=== PATIENT | male | born 1960 | race Hispanic/Latino ===

== ENCOUNTER 2018-01-23 10:31 | Emergency (ER) | payer SELFPAY ==
[2018-01-23] MEDS ORDERED: NA CHLORIDE 0.9% 1,000 ML ONE (11:06)
[2018-01-23 11:09] LABS: Absolute Lymphocytes (CBC) 1.1 K/uL (0.7-4.9); Absolute Monocytes 1.4 K/uL (0.1-1.3); Absolute Neutrophil 14.1 K/uL (1.8-8.0); Basophils % 0.1 % (0-1.3); Hematocrit 44.1 % (39.6-49.0); Lymphocytes % 6.8 % (15.3-44.8); MCH 27.7 pg (27.0-35.0); MCV 82.8 fL (80-100); MPV 9.4 fL (7.6-11.3); Monocytes % 8.6 % (3.3-12.3); RBC Red Blood Cell Count 5.33 M/uL (4.33-5.43)
[2018-01-23 11:32] LABS: ALT/SGPT 72 U/L (12-78); AST/SGOT 61 U/L (15-37); Albumin 3.4 g/dL (3.4-5.0); Alkaline Phosphatase 169 U/L (45-117); BUN Blood Urea Nitrogen 10 mg/dL (7-18); Bicarbonate 22 mmol/L (21-32); Bilirubin Direct 1.1 mg/dL (0-0.2); Bilirubin Total 3.1 mg/dL (0.2-1.0); Glucose Level 311 mg/dL (74-106); Lipase 115 U/L (73-393); Potassium 3.7 mmol/L (3.5-5.1); Protein, Total 7.3 g/dL (6.4-8.2); Sodium Level 137 mmol/L (136-145); Troponin (Emerg Dept Use Only) < 0.02 ng/mL (0.0-0.045)
--- NOTE | 2018-01-23 11:33 | RAD REPORT ---
EXAM DESCRIPTION: US - Abdomen Exam Limited - 01/23/2018 11:27 am CLINICAL HISTORY: Abdominal pain. COMPARISON: None. FINDINGS: The gallbladder wall is not thickened. A gallstone is not seen. The biliary tree is normal caliber. IMPRESSION: Unremarkable gallbladder ultrasound.
--- NOTE | 2018-01-23 11:45 | RAD REPORT ---
EXAM DESCRIPTION: RAD - Chest Single View - 01/23/2018 11:34 am CLINICAL HISTORY: RUQ pain Chest pain. COMPARISON: CHEST SINGLE VIEW dated 06/21/2012 FINDINGS: Portable technique limits examination quality. The lungs are grossly clear. The heart is normal in size. No displaced fractures. IMPRESSION: No acute intrathoracic process suspected.
[2018-01-23] MEDS ORDERED: LIDOCAINE VISCOUS 2% SOLN 15 ML UDC ONE (11:55)
[2018-01-23] MEDS ORDERED: MAGNE/ALUM HYDROXD 30 ML UCUP ONE (11:55)
[2018-01-23] MEDS ORDERED: IBUPROFEN 400 MG TAB ONE (12:02)
--- NOTE | 2018-01-23 12:33 | EKG ---
Test Date: 2018-01-23 Test Time: 10:58:49 Tow Truck Dispatcher: KAREN MEASUREMENT RESULTS: Intervals: Rate: 108 RI: 144 QRSD: 92 QT: 312 QTc: 418 [place]: P: 29 RI: 144 QRS: 62 T: 11 INTERPRETIVE STATEMENTS: Sinus tachycardia Otherwise normal ECG Compared to ECG 06/21/2012 17:23:28 No significant changes Electronically Signed On 01-23-18 12:32:44 CDT by Anthony Dennis
[2018-01-23] MEDS ORDERED: ACETAMINOPHEN 500 MG TAB ONE (13:30)
--- NOTE | 2018-01-23 14:20 | RAD REPORT ---
EXAM DESCRIPTION: CT - Abdomen Pelvis W Contrast - 01/23/2018 1:56 pm CLINICAL HISTORY: Abdominal pain with nausea. COMPARISON: none. TECHNIQUE: Computed axial tomography of the abdomen pelvis was obtained. 100 cc Isovue-300 was admin istered intravenously. Oral contrast was given All CT scans are performed using dose optimization technique as appropriate and may include automated exposure control or mA/KV adjustment according to patient size. FINDINGS: A cirrhotic liver is present. For the portal vein is patent. A lesion is not seen. The spleen measures 18 centimeters. The pancreas, adrenals and kidneys appear unremarkable. The appendix is normal. There is no evidence of diverticulitis. No ascites is seen. There is no evidence of diverticulitis. IMPRESSION: Cirrhosis with moderate splenomegaly
[2018-01-23 14:30] LABS: Urine Blood TRACE (NEG); Urine Glucose 3+ (NEG); Urine Protein NEGATIVE (NEG); Urine Specific Gravity 1.015 (1.005-1.030); Urine pH 5.5 (5.0-7.0)
--- NOTE | 2018-01-23 14:43 | ER ---
Nurse's Notes [facility] Name: Ishmael Fletcher Age: 57 yrs Sex: Male : 1960 Arrival Date: 01/23/2018 Time: 10:39 Bed 8 Private MD: Diagnosis: Unspecified abdominal pain;Fever, unspecified Presentation: 01/23 10:40 Presenting complaint: Patient states: abdominal pain with nausea started yesterday. Transition of care: patient was not received from another setting of care. Onset of symptoms was January 22, 2018. Risk Assessment: Do you want to hurt yourself or someone else? Patient reports no desire to harm self or others. Initial Sepsis Screen: Does the patient meet any 2 criteria? HR > 90 bpm. Does the patient have a suspected source of infection? No. Patient's initial sepsis screen is negative. Care prior to arrival: None. 10:40 Method Of Arrival: Ambulatory 10:40 Acuity: MEME 3 10:42 Note serbian speaking only. Triage Assessment: 10:41 General: Appears in no apparent distress. uncomfortable, Behavior is calm, cooperative, ch appropriate for age. Pain: Complains of pain in abdomen. GI: Reports lower abdominal pain, upper abdominal pain, nausea. Historical: - Allergies: 10:41 No Known Allergies; - Home Meds: 10:41 blood pressure and diabetes pills [Active]; - PMHx: 10:41 Hypertension; Diabetes - NIDDM; - PSHx: 10:41 None; - Immunization history:: Adult Immunizations up to date, Flu vaccine is not up to date. - Social history:: Smoking status: Patient/guardian denies using tobacco, Patient uses alcohol, occasionally. - Ebola Screening: : Patient negative for fever greater than or equal to 101.5 degrees Fahrenheit, and additional compatible Ebola Virus Disease symptoms Patient denies exposure to infectious person Patient denies travel to an Ebola-affected area in the 21 days before illness onset No symptoms or risks identified at this time. - Family history:: not pertinent. - Hospitalizations: : No recent hospitalization is reported. Screenin:42 Abuse screen: Denies threats or abuse. Nutritional screening: No deficits noted. aa5 Tuberculosis screening: No symptoms or risk factors identified. Fall Risk None identified. Assessment: 10:42 General: Appears comfortable, Behavior is calm, cooperative. Pain: Complains of pain in aa5 epigastric area, right upper quadrant and left upper quadrant Pain does not radiate. Pain currently is 3 out of 10 on a pain scale. Quality of pain is described as crampy, Pain began last night Is continuous. Neuro: Level of Consciousness is awake, alert, obeys commands, Oriented to person, place, time, situation. Cardiovascular: Heart tones S1 S2 present Rhythm is regular. Respiratory: Airway is patent Respiratory effort is even, unlabored, Respiratory pattern is regular, symmetrical. GI: Abdomen is round non-distended, Bowel sounds present X 4 quads. Abd is soft and non tender X 4 quads. Reports nausea, Patient currently denies diarrhea, vomiting. : No signs and/or symptoms were reported regarding the genitourinary system. EENT: No signs and/or symptoms were reported regarding the EENT system. Derm: Skin is pink, warm \T\ dry. Musculoskeletal: Range of motion: intact in all extremities. 11:06 Reassessment: Us at bedside . aa5 11:45 Reassessment: Patient and/or family updated on plan of care and expected duration. Pain aa5 level reassessed. Patient is alert, oriented x 3, equal unlabored respirations, skin warm/dry/pink. Patient denies pain at this time. 11:58 Reassessment: Pt completed CT oral contrast, CT notified . aa5 13:26 Reassessment: Patient appears in no apparent distress at this time. Patient and/or sv family updated on plan of care and expected duration. Pain level reassessed. Patient is alert, oriented x 3, equal unlabored respirations, skin warm/dry/pink. Vital Signs: 10:41 BP 155 / 81; Pulse 124; Resp 22; Temp 99.5(O); Pulse Ox 99% on R/A; Weight 94.35 kg; aa5 Height 5 ft. 9 in. (175.26 cm); Pain 3/10; 11:06 BP 133 / 79; Pulse 108; Resp 16 S; Pulse Ox 96% on R/A; Pain 2/10; aa5 11:51 Pulse 95; Resp 20 S; Temp 101.3(O); Pulse Ox 97% on R/A; Pain 0/10; aa5 13:00 BP 105 / 60; Pulse 102; Resp 20; Pulse Ox 98% ; sv 13:13 Temp 102.4(T); jb1 15:07 BP 110 / 74; Pulse 97; Resp 16; Temp 99.8(O); Pulse Ox 98% on R/A; la1 10:41 Body Mass Index 30.72 (94.35 kg, 175.26 cm) aa5 ED Course: 10:39 Patient arrived in ED. as 10:40 Yanna Kohler, RN is Primary Nurse. aa5 10:40 Triage completed. ch 10:41 Arm band placed on left wrist. Patient placed in an exam room, on a stretcher. ch 10:42 Grayson Juares MD is Attending Physician. rn 10:42 Patient has correct armband on for positive identification. Placed in gown. Bed in low aa5 position. Call light in reach. Side rails up X2. 11:00 Initial lab(s) drawn, by me, sent to lab. Inserted saline lock: 20 gauge in right aa5 antecubital area, using aseptic technique. Blood collected. 11:03 US Abdomen Limited In Process Unspecified. EDMS 11:10 EKG done, by residential air sealing technician. reviewed by Grayson Juares MD. at1 11:23 Ultrasound completed. Patient tolerated well. Note: done portable/bedside. dr juares not lc3 available for prelim. 11:33 X-ray completed. Portable x-ray completed in exam room. Patient tolerated procedure jb2 well. 11:35 XRAY Chest (1 view) In Process Unspecified. EDMS 12:00 Flu and/or RSV swab sent to lab. aa5 13:13 Urine collected: clean catch specimen, cloudy, bartolo colored. jb1 13:56 CT Abd/Pelvis - W/Contrast In Process Unspecified. EDMS 15:07 No provider procedures requiring assistance completed. IV discontinued, intact, la1 bleeding controlled, No redness/swelling at site. Pressure dressing applied. Administered Medications: 11:01 Drug: NS 0.9% 1000 ml Route: IV; Rate: 1000 ml; Site: right antecubital; sv 11:53 Follow up: IV Status: Completed infusion; IV Intake: 1000ml aa5 12:00 Follow up: IV Status: Completed infusion la1 11:52 Drug: GI Cocktail without - (Maalox Suspension 30 ml, Lidocaine Liquid 2 % 15 aa5 ml) Route: PO; 15:06 Follow up: Response: No adverse reaction la1 12:00 Drug: Motrin 800 mg Route: PO; aa5 15:06 Follow up: Response: No adverse reaction la1 13:26 Drug: Tylenol 1000 mg Route: PO; sv 15:05 Follow up: Response: No adverse reaction; Temperature is decreased la1 Intake: 11:53 IV: 1000ml; Total: 1000ml. aa5 Outcome: 14:41 Discharge ordered by . rn 15:08 Discharged to home ambulatory. la1 15:08 Condition: stable 15:08 Discharge instructions given to patient, Instructed on discharge instructions, follow up and referral plans. medication usage, Demonstrated understanding of instructions, follow-up care, medications, Prescriptions given X 3. 15:08 Patient left the ED. la1 Signatures: Dispatcher [employer] EDMS Delta Fletcher1 Meron Lancaster RN RN ch Verde, Stephanie, RN RN sv Buechter, Jesse jb2 Stephanie Cooper Roman, MD MD rn Calderon, Audri RN RN aa5 Carmelita Dunn, ginner helper EKG Tat1 Patel Felder RN RN la1 Ricardo Babcock Corrections: (The following items were deleted from the chart) 11:51 10:41 BP 155 / 81; Pulse 124bpm; Resp 22bpm; Pulse Ox 99% RA; 94.35 kg; Height 5 ft. 9 aa5 in.; BMI: 30.7; Pain 3/10;
--- NOTE | 2018-01-23 14:43 | EDPHYS ---
Physician Documentation [facility] Name: Ishmael Fletcher Age: 57 yrs Sex: Male : 1960 Arrival Date: 01/23/2018 Time: 10:39 Bed 8 Private MD: ED Physician Grayson Juares HPI: 01/23 10:50 This 57 yrs old Male presents to ER via Ambulatory with complaints of rn Abdominal Pain. 10:50 The patient presents with abdominal pain in the epigastric area, in the right upper rn quadrant. Onset: The symptoms/episode began/occurred last night. The symptoms do not radiate. Associated signs and symptoms: none. Pertinent negatives: nausea and vomiting, anorexia, chest pain, diarrhea, dysuria, fever, palpitations, shortness of breath. The symptoms are described as achy. Modifying factors: The symptoms are alleviated by nothing, the symptoms are aggravated by touching the area. Severity of pain: At its worst the pain was moderate in the emergency department the pain has improved. The patient has not experienced similar symptoms in the past. The patient has not recently seen a physician. Historical: - Allergies: 10:41 No Known Allergies; ch - Home Meds: 10:41 blood pressure and diabetes pills [Active]; - PMHx: 10:41 Hypertension; Diabetes - NIDDM; - PSHx: 10:41 None; - Immunization history:: Adult Immunizations up to date, Flu vaccine is not up to date. - Social history:: Smoking status: Patient/guardian denies using tobacco, Patient uses alcohol, occasionally. - Ebola Screening: : Patient negative for fever greater than or equal to 101.5 degrees Fahrenheit, and additional compatible Ebola Virus Disease symptoms Patient denies exposure to infectious person Patient denies travel to an Ebola-affected area in the 21 days before illness onset No symptoms or risks identified at this time. - Family history:: not pertinent. - Hospitalizations: : No recent hospitalization is reported. ROS: 10:50 Constitutional: Negative for fever, chills, and weight loss, Eyes: Negative for injury, rn pain, redness, and discharge, Cardiovascular: Negative for chest pain, palpitations, and edema, Respiratory: Negative for shortness of breath, cough, wheezing, and pleuritic chest pain, Abdomen/GI: Negative for vomiting, diarrhea, and constipation, Back: Negative for injury and pain, MS/Extremity: Negative for injury and deformity, Skin: Negative for injury, rash, and discoloration, Neuro: Negative for headache, weakness, numbness, tingling, and seizure. Exam: 10:50 Constitutional: This is a well developed, well nourished patient who is awake, alert, rn and in no acute distress. Head/Face: Normocephalic, atraumatic. Eyes: Pupils equal round and reactive to light, extra-ocular motions intact. Cardiovascular: regular, tachycardic, no murmur Respiratory: Lungs have equal breath sounds bilaterally, clear to auscultation. No increased work of breathing, no retractions or nasal flaring. Abdomen/GI: soft, mils epigastric and RUQ tenderness, neg allen Skin: Warm, dry with normal turgor. Normal color with no rashes, no lesions, and no evidence of cellulitis. MS/ Extremity: Pulses equal, no cyanosis. Neurovascular intact. Full, normal range of motion. Equal circumference. Neuro: Awake and alert, GCS 15, oriented to person, place, time, and situation. Cranial nerves II-XII grossly intact. Motor strength 5/5 in all extremities. Sensory grossly intact. 10:59 ECG was reviewed by the Attending Physician. rn Vital Signs: 10:41 BP 155 / 81; Pulse 124; Resp 22; Temp 99.5(O); Pulse Ox 99% on R/A; Weight 94.35 kg; aa5 Height 5 ft. 9 in. (175.26 cm); Pain 3/10; 11:06 BP 133 / 79; Pulse 108; Resp 16 S; Pulse Ox 96% on R/A; Pain 2/10; aa5 11:51 Pulse 95; Resp 20 S; Temp 101.3(O); Pulse Ox 97% on R/A; Pain 0/10; aa5 13:00 BP 105 / 60; Pulse 102; Resp 20; Pulse Ox 98% ; sv 13:13 Temp 102.4(T); jb1 15:07 BP 110 / 74; Pulse 97; Resp 16; Temp 99.8(O); Pulse Ox 98% on R/A; la1 10:41 Body Mass Index 30.72 (94.35 kg, 175.26 cm) aa5 MDM: 10:42 Patient medically screened. rn 14:39 Differential diagnosis: appendicitis, cholecystitis, diverticulitis, gastritis, rn Hepatitis, pancreatitis, Peptic Ulcer Disease. Data reviewed: vital signs, nurses notes, lab test result(s), radiologic studies, CT scan, ultrasound, and as a result, I will discharge patient. Counseling: I had a detailed discussion with the patient and/or guardian regarding: the historical points, exam findings, and any diagnostic results supporting the discharge/admit diagnosis, lab results, radiology results, the need for outpatient follow up, to return to the emergency department if symptoms worsen or persist or if there are any questions or concerns that arise at home. Response to treatment: the patient's symptoms have resolved after treatment, the patient's condition has returned to base line, the patient is now symptom free, and as a result, I will discharge patient. Special discussion: Based on the patient's Hx, exam, and Dx evaluation, there is no indication for emergent surgery or inpatient Tx. It is understood by the patient/guardian that if the Sx's persist or worsen they need to return immediately for re-evaluation. I discussed with the patient/guardian in detail that at this point there is no indication for admission to the hospital. It is understood, however, that if the symptoms persist or worsen the patient needs to return immediately for re-evaluation. ED course: Neg ct except for cirrhosis of liver, patient reports drinks often, no current pain, no nausea. Possible viral syndrome vs early colitis. Will dc home with return precautions. . 01/23 10:47 Order name: Basic Metabolic Panel; Complete Time: 11:41 rn 01/23 10:47 Order name: CBC with Diff; Complete Time: 11:41 rn 01/23 10:47 Order name: Hepatic Function; Complete Time: 11:41 rn 01/23 10:47 Order name: Lipase; Complete Time: 11:41 rn 01/23 10:47 Order name: Troponin (emerg Dept Use Only); Complete Time: 11:41 rn 01/23 11:53 Order name: Flu; Complete Time: 13:22 aa5 01/23 10:47 Order name: US Abdomen Limited; Complete Time: 11:41 rn 01/23 10:47 Order name: XRAY Chest (1 view); Complete Time: 11:54 rn 01/23 11:42 Order name: CT Abd/Pelvis - W/Contrast; Complete Time: 14:21 rn 01/23 13:58 Order name: Urine Dipstick--Ancillary (enter results); Complete Time: 14:41 bd 01/23 10:47 Order name: IV Saline Lock; Complete Time: 11:01 rn 01/23 10:47 Order name: Labs collected and sent; Complete Time: 11:01 rn 01/23 10:47 Order name: EKG; Complete Time: 10:48 rn 01/23 10:47 Order name: EKG - Nurse/Tech; Complete Time: 11:03 rn 01/23 12:04 Order name: Urine Dipstick-Ancillary (obtain specimen); Complete Time: 13:13 aa5 EC:59 Rate is 108 beats/min. Rhythm is regular. QRS [place] is Normal. ND interval is normal. rn QRS interval is normal. QT interval is normal. No Q waves. T waves are Normal. No ST changes noted. Clinical impression: Sinus tachycardia. Interpreted by me. Administered Medications: 11:01 Drug: NS 0.9% 1000 ml Route: IV; Rate: 1000 ml; Site: right antecubital; sv 11:53 Follow up: IV Status: Completed infusion; IV Intake: 1000ml aa5 12:00 Follow up: IV Status: Completed infusion la1 11:52 Drug: GI Cocktail without - (Maalox Suspension 30 ml, Lidocaine Liquid 2 % 15 aa5 ml) Route: PO; 15:06 Follow up: Response: No adverse reaction la1 12:00 Drug: Motrin 800 mg Route: PO; aa5 15:06 Follow up: Response: No adverse reaction la1 13:26 Drug: Tylenol 1000 mg Route: PO; sv 15:05 Follow up: Response: No adverse reaction; Temperature is decreased la1 Disposition: 01/23/18 14:41 Discharged to Home. Impression: Unspecified abdominal pain, Fever, unspecified. - Condition is Stable. - Discharge Instructions: Abdominal Pain, Adult, Fever, Adult. - Prescriptions for Cipro 500 mg Oral Tablet - take 1 tablet by ORAL route every 12 hours for 10 days; 20 tablet. Flagyl 500 mg Oral Tablet - take 1 tablet by ORAL route every 8 hours for 10 days; 30 tablet. Zofran ODT 4 mg Oral tablet,disintegrating - place 1 tablet by TRANSLINGUAL route every 8-10 hours; 15 tablet. - Medication Reconciliation Form, Thank You Letter, Antibiotic Education, Prescription Opioid Use, Work release form form. - Follow up: Private Physician; When: As needed; Reason: Recheck today's complaints, Re-evaluation by your physician. - Problem is new. - Symptoms have improved. Signatures: Dispatcher [employer] EDMS Meron Lancaster, RN Anne Kleni ch RN Grayson Malloy MD MD rn Calderon, Audri, RN RN aa5 Patel Felder RN RN la1 Corrections: (The following items were deleted from the chart) 15:08 14:41 01/23/2018 14:41 Discharged to Home. Impression: Unspecified abdominal pain; la1 Fever, unspecified. Condition is Stable. Forms are Medication Reconciliation Form, Thank You Letter, Antibiotic Education, Prescription Opioid Use. Follow up: Private Physician; When: As needed; Reason: Recheck today's complaints, Re-evaluation by your physician. Problem is new. Symptoms have improved. rn
[2018-01-23 15:35] VITALS: BP 110/74; TEMP 99.8; O2SAT 98
== END 2018-01-23 15:08 | disposition home or self-care (01) ==
LOC: ER 10:31
DX: R50.9 Fever, unspecified (principal); I10 Essential (primary) hypertension; E11.9 Type 2 diabetes mellitus without complications
CPT/HCPCS: 36415; 71045; 74177; 76705; 80048; 80076; 81003; 83690; 84484; 85025; 87804; 93005; 96360; 99284; J7030; Q9967